=== PATIENT | male | born 1995 | race Caucasian/White ===

== ENCOUNTER 2022-08-01 04:01 | Emergency (ER) | payer BC ==
[2022-08-01] MEDS ORDERED: Sodium Chloride 0.9% 1,000 ML ONE (04:19)
[2022-08-01] MEDS ORDERED: Morphine 4 MG/ML VIAL ONE (04:19)
[2022-08-01] MEDS ORDERED: Ondansetron PF 4 MG/2 ML Vial ONE (04:19)
[2022-08-01] MEDS ORDERED: Ketorolac Tromethamine 30 MG/ML VIAL ONE (04:24)
[2022-08-01 04:26] LABS: #Basophils 0.1 thou/uL (0.0-0.2); #Eosinphils 0.1 thou/uL (0.0-0.7); #Lymphocytes 2.3 thou/uL (1.20-3.40); #Monocytes 0.5 thou/uL (0.11-0.59); #Neutrophils 4.4 thou/uL (1.40-6.50); %Basophils 0.7 % (0.0-1.0); %Eosinophils 1.3 % (0.0-10.0); %Lymphocytes 31.2 % (21.0-51.0); %Monocytes 7.1 % (0.0-10.0); %Neutrophils 59.7 % (42.0-75.0); Mean Corpuscular Hemoglobin 28.4 pg (27.0-31.0); Mean Corpuscular Volume 83.4 fl (78.0-98.0); Mean Platelet Volume 6.8 fL (7.4-10.4); Platelet Count 279 10x3/uL (130-400); RBC Distribution Width 11.3 % (11.5-14.5); Red Blood Cell (RBC) Count 4.95 mill/uL (4.70-6.10); White Blood Cell (WBC) Count 7.3 10x3/uL (4.8-10.8)
[2022-08-01 04:46] LABS: ALT (SGPT) 15 U/L (8-55); AST (SGOT) 20 U/L (5-34); Albumin 4.2 g/dL (3.5-5.0); Alkaline Phosphatase 94 U/L (40-110); Anion Gap 14 mmol/L (10-20); BUN (Urea Nitrogen) 15 mg/dL (8.9-20.6); Bilirubin, Total 0.5 mg/dL (0.2-1.2); Calc. Creatinine Clearance 0 mL/min (70-130); Calcium 9.1 mg/dL (7.8-10.44); Carbon Dioxide 22 mmol/L (22-29); Chloride 108 mmol/L (98-107); Estimated GFR 97; Globulin 2.7 g/dL (2.4-3.5); Glucose 127 mg/dL (70-105); Potassium 3.6 mmol/L (3.5-5.1); Protein, Total 6.9 g/dL (6.0-8.3); Sodium 140 mmol/L (136-145)
[2022-08-01 05:30] LABS: Bilirubin Negative (Negative); Blood, Urine Moderate (Negative); Clarity Slightly Cloudy (Clear); Glucose, Urine (Dipstick) Negative (Negative); Ketone, Urine Trace mg/dL (Negative); Leukocyte Negative (Negative); Nitrite Negative (Negative); Protein, Urine (Dipstick) Negative (Neg-Trace); Specific Gravity, Urine 1.025 (1.005-1.030); Urobilinogen 0.2 mg/dL (Less than 2)
[2022-08-01 05:38] LABS: Bacteria/HPF None Seen HPF (None Seen); RBC/HPF 21-50 HPF (0-3); Squamous Epithelial 0-3 HPF (0-3); Transitional Epithelial None Seen HPF (None Seen); WBC/HPF 0-3 HPF (0-3)
== END 2022-08-01 05:53 | disposition home or self-care (01) ==
LOC: MADERS 04:01
DX: N13.2 Hydronephrosis with renal and ureteral calculous obstruction (principal)
CPT/HCPCS: 74176; 80053; 81003; 81015; 85025; 96361; 96374; 96375; J1885; J2270; J2405; J7050